=== PATIENT | male | born 1970 | race Caucasian/White ===

== ENCOUNTER 2017-01-12 19:05 | Inpatient (IN) | payer BC ==
--- NOTE | ~2017-01-12 | HP ---
History And Physical [address] [place]. [address] NAME: JOSE ANNE : 72 STATUS : DIS IN PAT#: [id number] AGE: 46 ADM/REG DATE : 01/12/17 MR#: [id number] REPORT SERV DATE: 01/13/17 DICTATED BY: NGHIA CHOUDHURY DATE: 01/12/17 REPORT STATUS : Draft TRANSCRIBED BY: MODL DATE: 01/12/17 DATE OF ADMISSION: 01/12/2017 CHIEF COMPLAINT: Chest discomfort. HISTORY OF PRESENT ILLNESS: Mr. Anne is a 46-year-old man who is in good health. 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 He reports that over the past several days, he began to have back pain which radiated with associated chest fullness while on the treadmill. It started about 5 minutes into his exercise. He exercises regularly and realized this was new. He thought he pulled a muscle. He got off the treadmill, relaxed, his chest pain and the pain got better. He got back on the treadmill and it reoccurred. This has happened over the past several days. He thought he just pulled a muscle. He began to have some pain while lying on the couch yesterday, and again, after overnight, he had some pain lasting for about an hour to an hour and a half. It was fairly uncomfortable this morning. He went back to work and walked and worked without difficulty but decided to come into the emergency room for evaluation. In the emergency room, his EKG showed no acute changes. His troponin was elevated at 0.34. He is pain-free at present. REVIEW OF SYSTEMS: As per the history of present illness. Ten other systems are negative. PAST MEDICAL HISTORY: Low testosterone on supplementation. FAMILY HISTORY: Positive for diabetes. SOCIAL HISTORY: No tobacco. Exercises regularly. Occasional alcohol. ALLERGIES: ALLERGIES NONE KNOWN. HOME MEDICATIONS: Testosterone supplementation. PHYSICAL EXAMINATION: VITAL SIGNS: Heart rate 65, blood pressure 155/74. GENERAL: The patient is pleasant, healthy appearing white male, no apparent distress. HEENT: Conjunctivae are anicteric, no xanthelasma, lips without cyanosis. NECK: Supple, normal JVP, carotids +2 without bruit. LUNGS: Clear to auscultation bilaterally, no wheezes, rales or rhonchi. CARDIOVASCULAR: Regular rate and rhythm. Normal S1 and S2 without S3. No murmur or rub. PMI is nondisplaced. ABDOMEN: Soft, nontender, nondistended, with normal bowel sounds. No hepatomegaly. EXTREMITIES: No clubbing, cyanosis or edema. NEURO/PSYCH: Alert and oriented to person, place and time. No obvious neurologic deficits. Mood and affect normal. DATA: Electrocardiogram shows sinus rhythm with no acute ST-T wave changes. Troponin is 0.35, H and H unremarkable, white blood cell count 6.5. History And Physical [address] [address] NAME: JOSE ANNE : 72 STATUS : DIS IN PAT#: [id number] AGE: 46 ADM/REG DATE : 01/12/17 MR#: [id number] REPORT SERV DATE: 01/13/17 DICTATED BY: NGHIA CHOUDHURY DATE: 01/12/17 REPORT STATUS : Draft TRANSCRIBED BY: YANG DATE: 01/12/17 IMPRESSION: 1. Acute coronary syndrome. 2. Low testosterone. RECOMMENDATIONS: Mr. Anne presents with exertional chest pain syndrome which is consistent with angina and elevated troponin. I am concerned that this is acute coronary syndrome. He has been started on heparin drip and I agree. I have recommended an arteriogram. Discussed with him the risk of heart attack, stroke, and he wishes to proceed. It will guide us in our next step to determine what further intervention and/or treatment will be needed. WO/YANG Nghia Choudhury M.D., Ph.D, F.A.C.C. / [id number] CC: Lio Rose DO
[2017-01-12 16:09] LABS: BASOPHILS 0.5 %; BASOPHILS ABSOLUTE 0.03 10/3/uL (0.0-0.16); EOSINOPHILS 1.5 %; ER CBC TAT 0 Hrs 05 Mins; HEMATOCRIT 48.3 % (40.0-51.0); HEMOGLOBIN 16.2 g/dL (13.6-17.8); LYMPHOCYTES 32.8 %; LYMPHOCYTES ABSOLUTE 2.13 10/3/uL (0.67-4.30); MEAN CORPUS HGB CONC 33.5 g/dL (32.0-36.0); MEAN CORPUSCULAR HEMOGLOB 30.3 pg (26.0-34.0); MEAN CORPUSCULAR VOLUME 90.4 fL (80-100); MEAN PLATELET VOLUME 10.7 fL (9.2-13.0); MONOCYTES 7.1 %; MONOCYTES ABSOLUTE 0.46 10/3/uL (0.21-1.20); NEUTROPHILS 58.1 %; NEUTROPHILS ABSOLUTE 3.78 10/3/uL (2.02-8.40); PLATELET COUNT 163 10/3/uL (150-400); RED CELL COUNT 5.34 10/6/uL (4.7-6.1); WHITE BLOOD CELLS 6.5 10/3/uL (4.5-10.5)
[2017-01-12 16:10] LABS: MANUAL DIFF NO %
[2017-01-12 16:16] LABS: PARTIAL THROMBO TIME 26.8 SEC (22.5-37.2)
[2017-01-12 16:17] LABS: INTERNATIONAL NORMAL RATI 1.1 UNITS (-); PROTIME (NOT ORD) 13.7 SEC (12.0-14.5)
[2017-01-12 16:23] LABS: BUN (BLOOD UREA NITROGEN) 19 MG/DL (6-23); CALCIUM, SERUM 9.4 MG/DL (8.5-10.4); CHLORIDE, SERUM 101 MMOL/L (96-112); CO2 (CARBON DIOXIDE) 34 MMOL/L (24-34); GFR AFRICAN AMERICAN 93 ML/MIN (>=60); GFR NON AFRICAN AMERICAN 81 ML/MIN (>=60); GLUCOSE, SERUM 100 MG/DL (60-99); POTASSIUM, SERUM 4.8 MMOL/L (3.5-5.3); SODIUM, SERUM 137 MMOL/L (135-148)
[2017-01-12 16:27] LABS: CHEST PAIN PROFILE TAT 0 Hrs 23 Mins; TROPONIN I 0.35 NG/ML (<0.05)
[~2017-01-12 19:05] MED LIST: IRON325 MG PO
[2017-01-12] MEDS ORDERED: FERROUS SULF325 M1 PO (19:38)
[2017-01-12] MEDS ORDERED: TESTOSTERONE INJ IM (19:41)
[2017-01-13 02:55] LABS: BASOPHILS 0.4 %; BASOPHILS ABSOLUTE 0.02 10/3/uL (0.0-0.16); EOSINOPHILS 2.8 %; EOSINOPHILS ABSOLUTE 0.16 10/3/uL (0.0-0.53); HEMATOCRIT 45.6 % (40.0-51.0); HEMOGLOBIN 15.6 g/dL (13.6-17.8); LYMPHOCYTES 42.9 %; LYMPHOCYTES ABSOLUTE 2.41 10/3/uL (0.67-4.30); MEAN CORPUS HGB CONC 34.2 g/dL (32.0-36.0); MEAN CORPUSCULAR HEMOGLOB 30.6 pg (26.0-34.0); MEAN CORPUSCULAR VOLUME 89.4 fL (80-100); MEAN PLATELET VOLUME 11.2 fL (9.2-13.0); MONOCYTES 8.5 %; MONOCYTES ABSOLUTE 0.48 10/3/uL (0.21-1.20); NEUTROPHILS 45.4 %; NEUTROPHILS ABSOLUTE 2.55 10/3/uL (2.02-8.40); PLATELET COUNT 153 10/3/uL (150-400); RBC DISTRIBUTION WIDTH 13.2 % (12.0-16.0); WHITE BLOOD CELLS 5.6 10/3/uL (4.5-10.5)
[2017-01-13 02:56] LABS: MANUAL DIFF NO %
[2017-01-13 03:09] LABS: BUN (BLOOD UREA NITROGEN) 21 MG/DL (6-23); CALCIUM, SERUM 8.9 MG/DL (8.5-10.4); CHLORIDE, SERUM 103 MMOL/L (96-112); CHOL/HDL RATIO(NOT ORDER) 4.5 (0-5); CHOLESTEROL 209 MG/DL (< 200); CO2 (CARBON DIOXIDE) 31 MMOL/L (24-34); CREATININE 1.09 MG/DL (0.70-1.30); GFR AFRICAN AMERICAN 95 ML/MIN (>=60); GFR NON AFRICAN AMERICAN 82 ML/MIN (>=60); GLUCOSE, SERUM 118 MG/DL (60-99); HDL CHOLESTEROL 46 MG/DL (> 39); LDL CHOLESTEROL 101 MG/DL (< 130); NON-HDL CHOLESTEROL 163 MG/DL (< 160); POTASSIUM, SERUM 4.1 MMOL/L (3.5-5.3); SGPT(ALT) 23 U/L (5-65); SODIUM, SERUM 142 MMOL/L (135-148); TRIGLYCERIDE 311 MG/DL (< 150)
[2017-01-13 11:51] LABS: CPK 112 U/L (0-200)
[2017-01-13 11:52] LABS: CK-MB 2.4 NG/ML
[2017-01-13] MEDS ORDERED: BRILINTA90 MG PO (12:40)
[2017-01-13] MEDS ORDERED: LIPITOR40 PO (12:40)
[2017-01-13] MEDS ORDERED: LOP25 PO (12:41)
[2017-01-13] MEDS ORDERED: ZESTRIL2.5 MG PO (12:41)
[2017-01-13] MEDS ORDERED: NITROSTAT0.4 MG SL (12:42)
[2017-01-14 04:54] LABS: HEMATOCRIT 47.3 % (40.0-51.0); HEMOGLOBIN 15.6 g/dL (13.6-17.8)
[2017-01-14 05:12] LABS: CHLORIDE, SERUM 107 MMOL/L (96-112); CK-MB 5.7 NG/ML; CO2 (CARBON DIOXIDE) 29 MMOL/L (24-34); CPK 120 U/L (0-200); CREATININE 1.15 MG/DL (0.70-1.30); GFR AFRICAN AMERICAN 89 ML/MIN (>=60); GFR NON AFRICAN AMERICAN 76 ML/MIN (>=60); GLUCOSE, SERUM 99 MG/DL (60-99); POTASSIUM, SERUM 4.4 MMOL/L (3.5-5.3); SODIUM, SERUM 141 MMOL/L (135-148)
[2017-01-14 05:13] LABS: BUN (BLOOD UREA NITROGEN) 17 MG/DL (6-23); CKMB INDEX (NOT ORD) 4.8
[2017-01-14] MEDS ORDERED: BRILINTA90 MG PO (09:23)
[2017-01-14] MEDS ORDERED: LIPITOR40 (09:23)
[2017-01-14] MEDS ORDERED: PRIN5 PO (09:24)
[2017-01-14] MEDS ORDERED: NTG150 SL (09:25)
== END 2017-01-14 10:39 | disposition home or self-care (01) | DRG 247 ==
LOC: ER 19:05 → CDU1 20:37 → CDU2 21:26 → SSU1 01-13 11:20
PROVIDERS: Emergency Medicine; Internal Medicine Cardiovascular Disease
PROC: 027034Z Dilation of Coronary Artery, One Artery with Drug-eluting Intraluminal Device, Percutaneous Approach (ICD-10-PCS; principal; 2017-01-13)
PROC: 4A023N7 Measurement of Cardiac Sampling and Pressure, Left Heart, Percutaneous Approach (ICD-10-PCS; 2017-01-13)
PROC: B215YZZ Fluoroscopy of Left Heart using Other Contrast (ICD-10-PCS; 2017-01-13)
PROC: B211YZZ Fluoroscopy of Multiple Coronary Arteries using Other Contrast (ICD-10-PCS; 2017-01-13)
DX: I21.4 Non-ST elevation (NSTEMI) myocardial infarction (principal); R00.1 Bradycardia, unspecified; E29.1 Testicular hypofunction; I25.10 Atherosclerotic heart disease of native coronary artery without angina pectoris; Z83.3 Family history of diabetes mellitus
CPT/HCPCS: 71020; 80048; 80061; 82550; 82553; 83735; 84460; 84484; 85014; 85018; 85025; 85610; 85730; 93005; 93458; 99152; 99153; 99285; A9270-GY; C1725; C1769; C1874; C1894; C9600; J0583; J1200; J2250; J3010; Q9967

== ENCOUNTER 2017-01-28 03:11 | Emergency (ER) | payer BC ==
[~2017-01-28 03:11] MED LIST changes: +BRILINTA90 MG PO; +FERROUS SULF325 M1 PO; +LIPITOR40; +LIPITOR40 PO; +LOP25 PO; +NITROSTAT0.4 MG SL; +NTG150 SL; +PRIN5 PO; +TESTOSTERONE INJ IM; +ZESTRIL2.5 MG PO
[2017-01-28 03:14] LABS: BASOPHILS 0.4 %; BASOPHILS ABSOLUTE 0.02 10/3/uL (0.0-0.16); EOSINOPHILS 1.8 %; HEMOGLOBIN 14.4 g/dL (13.6-17.8); LYMPHOCYTES 28.7 %; MEAN CORPUSCULAR HEMOGLOB 29.9 pg (26.0-34.0); MEAN PLATELET VOLUME 10.8 fL (9.2-13.0); MONOCYTES 8.1 %; MONOCYTES ABSOLUTE 0.45 10/3/uL (0.21-1.20); PLATELET COUNT 142 10/3/uL (150-400); RBC DISTRIBUTION WIDTH 12.3 % (12.0-16.0); RED CELL COUNT 4.82 10/6/uL (4.7-6.1); WHITE BLOOD CELLS 5.6 10/3/uL (4.5-10.5)
[2017-01-28 03:17] LABS: ER CBC TAT 0 Hrs 03 MinsNP; HEMATOCRIT 42.4 % (40.0-51.0); MANUAL DIFF NO %
[2017-01-28 03:22] LABS: PROTIME (NOT ORD) 13.4 SEC (12.0-14.5)
[2017-01-28 03:23] LABS: PARTIAL THROMBO TIME 29.3 SEC (22.5-37.2)
[2017-01-28 03:33] LABS: CALCIUM, SERUM 8.7 MG/DL (8.5-10.4); CHEST PAIN PROFILE TAT 0 Hrs 22 Mins; CHLORIDE, SERUM 104 MMOL/L (96-112); CO2 (CARBON DIOXIDE) 31 MMOL/L (24-34); CREATININE 1.08 MG/DL (0.70-1.30); GFR AFRICAN AMERICAN 96 ML/MIN (>=60); GFR NON AFRICAN AMERICAN 82 ML/MIN (>=60); GLUCOSE, SERUM 95 MG/DL (60-99); POTASSIUM, SERUM 4.3 MMOL/L (3.5-5.3); SODIUM, SERUM 140 MMOL/L (135-148); TROPONIN I 0.02 NG/ML (<0.05)
[2017-01-28 03:34] LABS: BUN (BLOOD UREA NITROGEN) 23 MG/DL (6-23)
== END 2017-01-28 03:59 | disposition home or self-care (01) ==
LOC: ER 03:11
PROVIDERS: Emergency Medicine
DX: R53.83 Other fatigue (principal); I25.2 Old myocardial infarction; D64.9 Anemia, unspecified; Z95.5 Presence of coronary angioplasty implant and graft; Z79.899 Other long term (current) drug therapy
CPT/HCPCS: 71010; 80048; 83735; 84484; 85025; 85610; 85730; 93005; 99284